=== PATIENT | female | born 1970 | race African-American/Black ===

== ENCOUNTER → 2016-10-31 | Outpatient (CLI) | payer MEDICAID | LOC: FIMAGING 13:10 | PROVIDERS: ATTEND Family Medicine | DX: N63 Unspecified lump in breast (principal) | CPT/HCPCS: G0204 ==

== ENCOUNTER → 2017-02-16 | Outpatient (CLI) | payer MEDICAID | LOC: CIMAGING 13:50 | PROVIDERS: ATTEND Nurse Practitioner Women's Health | DX: M25.532 Pain in left wrist (principal); M25.531 Pain in right wrist | CPT/HCPCS: 73100-PO ==

== ENCOUNTER 2017-04-10 10:10 | Emergency (ER) | payer MEDICAID ==
[2017-04-10 10:24] VITALS: RESP 18; TEMP 98.1
--- NOTE | 2017-04-10 10:28 | EDPHY ---
H & P Stated Complaint: RIGHT EAR FOR 2 DAYS, DENIES FEVERS Time Seen by Provider: 04/10/17 10:16 HPI/ROS: CHIEF COMPLAINT: Ear pain HISTORY OF PRESENT ILLNESS: This is a 46-year-old female with a two-day history of right ear pain. She describes the pain is excruciating. She has had "swimmer's ear" in the past the, which felt similarly. She has not had fever. She denies cough, sore throat, difficulty breathing or swallowing. REVIEW OF SYSTEMS: A ten point review of systems was performed and is negative with the exception of the items mentioned in the HPI. Past medical history: 1. Hypertension 2. 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 No tobacco use. General Appearance: Alert. Vital signs reviewed. BP 153/108. Eyes: Pupils equal and round, no conjunctival injection, no discharge. Anicteric. ENT, Mouth: Mucous membranes are moist, no oropharyngeal erythema or edema. Both tympanic membranes obscured by cerumen. Pain with any attempt to remove cerumen from the right ear. After ears were cleared of cerumen: Normal left external auditory canal and tympanic membrane. Tympanic membrane on the right appears normal. However, there is diffuse erythema and mild swelling of the external auditory canal on the right, consistent with otitis externa. Neck: No lymphadenopathy, supple. Respiratory: Lungs are clear to auscultation; no wheezes, rales, or rhonchi. Cardiovascular: Regular rate and rhythm; no murmur, rub, or gallop. Gastrointestinal: Abdomen is soft and nontender. Skin: Warm and dry, no rashes on exposed skin, normal color. Neurological: Alert and oriented. Moving all four extremities easily and equally. Psychiatric: Normal affect. - Personal History LMP (Females 10-55): 1-7 Days Ago - Medical/Surgical History Hx Asthma: No Hx Chronic Respiratory Disease: No Hx Diabetes: No Hx Cardiac Disease: Yes Hx Renal Disease: No Hx Cirrhosis: No Hx Alcoholism: No Hx HIV/AIDS: No Hx Splenectomy or Spleen Trauma: No Other PMH: ADD, OCD, HTN, C/S, WRIST SURG - Social History Smoking Status: Never smoked Constitutional: Initial Vital Signs Temperature (C) 36.7 C 04/10/17 10:22 Heart Rate 79 10/03/17 10:22 Respiratory Rate 18 04/10/17 10:22 Blood Pressure 153/108 H 04/10/17 10:22 O2 Sat (%) 98 04/10/17 10:22 O2 Delivery Mode Room Air Allergies/Adverse Reactions: Tetracyclines Allergy (Severe, Verified 04/10/17 10:24) Hives Home Medications: Medication Instructions Recorded Proair Hfa Icu (RX) 12/16/14 Qvar 40 (RX) 12/16/14 Modafinil 02/29/16 Adderall 10 MG (*) 04/10/17 Bystolic 04/10/17 Neomy Sulf/Polymyx B Sulf/Hc 4 drops OT TID #1 otic.btl 04/10/17 [Cortisporin Otic Suspension] Propranolol HCl 04/10/17 hydrALAZINE 04/10/17 Medical Decision Making ED Course/Re-evaluation: Cerumen impaction cleared. She has a right otitis externa. I do not suspect a malignant otitis. There is no tympanic membrane perforation. No evidence of otitis media. No change in hearing and there has been no ear trauma. She does not have fever does not otherwise ill. She feels much better after cerumen was cleared from her ears. She is being given a prescription for Cortisporin otic. She is also given information about pain and fever control. She is hypertensive in the emergency department. She has history of hypertension. She is aware of her elevated blood pressure reading today. She will have it followed up with her primary care provider. - Data Points Medications Given: Discontinued Medications Hydrocodone Bitart/Acetaminophen (Odebolt 5/325) 1 tab PO EDNOW ONE Stop: 04/10/17 10:45 Last Admin: 04/10/17 10:47 Dose: 1 tab Carbamide Peroxide (Debrox) 5 drop EACHEAR EDNOW ONE Stop: 04/10/17 10:45 Last Admin: 04/10/17 10:46 Dose: 5 drops Departure - Departure Disposition: Home, Routine, Self-Care Clinical Impression: Right otitis externa Qualifiers: Otitis externa type: diffuse Chronicity: acute Qualified Code(s): H60.311 - Diffuse otitis externa, right ear Condition: Good Instructions: Otitis Externa (ED) Additional Instructions: Adult Pain & Fever Control: We recommend Acetaminophen (Tylenol) and Ibuprofen (Motrin,Advil) for pain and fever control. When fever is high or pain severe, both drugs can be used at the same time, but at different intervals. Please note the time differences. Your dose is: Acetaminophen 650mg every 4 to 6 hours Ibuprofen 400mg every 6 hours with food OR Naproxen Sodium (Aleve) mg every 12 hours. Note: do not take Acetaminophen with Hydrocodone (Vicodin, Lortab) or Oycodone (Percocet). These medications also contain Acetaminophen. No more than 3000mg of Acetaminophen should be taken in 24 hours (for an adult). Referrals: Delmis Fuentes NP [Primary Care Provider] - As per Instructions Prescriptions: Neomy Sulf/Polymyx B Sulf/Hc [Cortisporin Otic Suspension] 4 drops OT TID #1 otic.btl
[2017-04-10] MEDS ORDERED: HYDROCODONE/APAP 5/325 TAB PO ONE (10:44)
[2017-04-10] MEDS ORDERED: CARBAMIDE PEROXIDE 15 ML BOTTLE EACHEAR ONE (10:44)
[2017-04-10 12:04] VITALS: BP 124/62; PULSE 74; O2SAT 94
== END 2017-04-10 11:58 | disposition home or self-care (01) ==
LOC: CED 10:10
DX: H60.311 Diffuse otitis externa, right ear (principal); I10 Essential (primary) hypertension

== ENCOUNTER → 2017-04-19 | Outpatient (CLI) | payer MEDICAID | LOC: CIMAGING 14:14 | PROVIDERS: ATTEND Internal Medicine | DX: M79.641 Pain in right hand (principal); M79.642 Pain in left hand; M79.671 Pain in right foot; M79.672 Pain in left foot | CPT/HCPCS: 73130-PO; 73630-PO ==

== ENCOUNTER 2017-08-06 08:10 | Emergency (ER) | payer MEDICAID ==
[2017-08-06 08:28] VITALS: PULSE 74; RESP 18; TEMP 98
--- NOTE | 2017-08-06 08:38 | EDPHY ---
H & P Time Seen by Provider: 08/06/17 08:25 HPI/ROS: CHIEF COMPLAINT: Right-sided neck pain HISTORY OF PRESENT ILLNESS: 46-year-old female presents with 1 week history of right-sided neck pain. She awoke 1 week ago with right-sided neck pain. The pain is moderate and increases with moving her head. Associated with pain down her right arm and intermittent tingling sensation. Taking Naprosyn without relief. Unable to sleep well because of the pain. No known injury. REVIEW OF SYSTEMS: Constitutional: No fever, no chills Eyes: No visual changes ENT: No sore throat Respiratory: No cough, no shortness of breath Cardiac: No chest pain Gastrointestinal: no vomiting, no abdominal pain Genitourinary: no dysuria Musculoskeletal: No leg pain or swelling Skin: No rash Neurological: No headache, no weakness Psychiatric: No depression Past Medical/Surgical History: Denies Social History: Transport to ED by city bus unemployed Smoking Status: Never smoked Physical Exam: General Appearance: Alert, pleasant Eyes: Pupils equal and round, no conjunctival pallor ENT, Mouth: Mucous membranes moist Neck: Normal inspection, no midline tenderness, right paraspinous tenderness that extends into the right shoulder and periscapular area Respiratory: Lungs are clear to auscultation Cardiovascular: Regular rate and rhythm Neurological: A&O, motor 5/5, sensory intact to light touch, normal gait Vascular: Radial pulse 2 + Skin: Warm and dry Extremities: Normal inspection Psychiatric: Mood and affect normal Constitutional: Initial Vital Signs Temperature (C) 36.6 C 08/06/17 08:25 Heart Rate 74 08/06/17 08:25 Respiratory Rate 18 08/06/17 08:25 Blood Pressure 170/105 H 08/06/17 08:25 O2 Sat (%) 95 08/06/17 08:25 O2 Delivery Mode Room Air Allergies/Adverse Reactions: Tetracyclines Allergy (Severe, Verified 04/10/17 10:24) Hives Home Medications: Medication Instructions Recorded Proair Hfa Icu (RX) 12/16/14 Qvar 40 (RX) 12/16/14 Modafinil 02/29/16 Adderall 10 MG (*) 04/10/17 Bystolic 04/10/17 Propranolol HCl 04/10/17 hydrALAZINE 04/10/17 Diazepam [Valium 5 MG (*)] 5 mg PO Q6 PRN #15 tab 08/06/17 Lidocaine 5% [Lidoderm 5% Patch 1 ea TD DAILY #10 patch 08/06/17 (*)] methylPREDNISolone [Medrol Dose 1 each PO AD #1 ea 08/06/17 Robbie] Medical Decision Making ED Course/Re-evaluation: Clinical presentation consistent with cervical radiculopathy. No evidence of worrisome neurovascular compromise. Valim 5mg orally given and a lidocaine patch placed. Will treat her with a Medrol Dosepak, lidocaine patch and Valium. She will follow up with primary care physician if the symptoms do not improve. - Data Points Medications Given: Discontinued Medications Diazepam (Valium) 5 mg PO EDNOW ONE Stop: 08/06/17 08:41 Last Admin: 08/06/17 08:54 Dose: 5 mg Lidocaine (Lidoderm 5%) 1 ea TD EDNOW ONE Stop: 08/06/17 08:41 Last Admin: 08/06/17 08:54 Dose: 1 ea Departure - Departure Disposition: Home, Routine, Self-Care Clinical Impression: Cervical radiculopathy Condition: Good Instructions: Cervical Radiculopathy (ED) Additional Instructions: 1. Take Tylenol 500 mg every 4 hr as needed for pain. 2. Do not take naproxen while you are taking the Medrol Dosepak. 3. Call to make an appointment with your physician. 4. Use the sling for comfort. Prescriptions: Diazepam [Valium 5 MG (*)] 5 mg PO Q6 PRN #15 tab PRN Reason: neck pain and muscle spasm Lidocaine 5% [Lidoderm 5% Patch (*)] 1 ea TD DAILY #10 patch methylPREDNISolone [Medrol Dose Robbie] 1 each PO AD #1 ea
[2017-08-06] MEDS ORDERED: LIDOCAINE 5% 1 EA PATCH TD ONE (08:40)
[2017-08-06] MEDS ORDERED: DIAZEPAM 5 MG TAB PO ONE (08:40)
[2017-08-06 09:12] VITALS: BP 174/62; O2SAT 97
[2017-08-06] MEDS ORDERED: PATCH REMOVAL 1 EA PATCH TD SCH (21:00)
== END 2017-08-06 09:01 | disposition home or self-care (01) ==
LOC: CED 08:10
DX: M54.12 Radiculopathy, cervical region (principal)
CPT/HCPCS: A4565

== ENCOUNTER → 2017-08-13 | Outpatient (CLI) | payer MEDICAID | LOC: CIMAGING 13:17 | PROVIDERS: ATTEND Family Medicine | DX: M25.511 Pain in right shoulder (principal); M54.2 Cervicalgia; R29.898 Other symptoms and signs involving the musculoskeletal system | CPT/HCPCS: 72040-PO; 73030-PO ==

== ENCOUNTER → 2017-08-17 | Outpatient (CLI) | payer MEDICAID | LOC: CIMAGING 13:14 | PROVIDERS: ATTEND Family Medicine | DX: R92.8 Other abnormal and inconclusive findings on diagnostic imaging of breast (principal) | CPT/HCPCS: 76641-PO ==

== ENCOUNTER → 2018-01-08 | Outpatient (CLI) | payer MEDICAID | LOC: FIMAGING 12:02 | PROVIDERS: ATTEND Family Medicine | DX: Z12.31 Encounter for screening mammogram for malignant neoplasm of breast (principal) ==

== ENCOUNTER → 2018-01-11 | Outpatient (CLI) | payer MEDICAID | LOC: CIMAGING 08:40 | PROVIDERS: ATTEND Family Medicine | DX: R05 Cough (principal); R07.89 Other chest pain; J45.909 Unspecified asthma, uncomplicated | CPT/HCPCS: 71046-PO ==

== ENCOUNTER → 2018-03-15 | Outpatient (CLI) | payer MEDICAID | LOC: CIMAGING 11:32 | PROVIDERS: ATTEND Family Medicine | DX: M25.531 Pain in right wrist (principal); R20.2 Paresthesia of skin; R29.898 Other symptoms and signs involving the musculoskeletal system | CPT/HCPCS: 73110-PO ==

== ENCOUNTER 2018-10-23 12:03 | Emergency (ER) | payer MEDICAID ==
[2018-10-23] MEDS ORDERED: NS 1,000 ML IV ONE (12:16)
[2018-10-23] MEDS ORDERED: DEXAMETHASONE 10 MG/ML VIAL IVP ONE (12:16)
[2018-10-23] MEDS ORDERED: METOCLOPRAMIDE 10 MG/2 ML VIAL IVP ONE (12:16)
[2018-10-23] MEDS ORDERED: KETOROLAC 30 MG/1 ML SDV IVP ONE (12:16)
--- NOTE | 2018-10-23 12:21 | EDPHY ---
H & P Stated Complaint: MIGRAINE SYMPTOMS Time Seen by Provider: 10/23/18 12:12 HPI/ROS: CHIEF COMPLAINT: Migraine headache HISTORY OF PRESENT ILLNESS: Patient is a 47-year-old female with a history of migraines who used to be on medication when she lived in [place] but over the last several years felt like her migraines had subsided. However they have increased again over the last 2-3 months. She is having headaches once or twice per week that involve photophobia, blurry vision, lightheaded and nauseous symptoms. She denies chest pain or shortness of breath. Her symptoms use resolve after about a day or 2. She had been taking [id number] medications successfully but states that that is no longer working. She has not had a fever. She does not have any focal weakness or deficits. Severity: Severe Modifying factors: None REVIEW OF SYSTEMS: Constitutional: denies: chills, fever, recent illness, recent injury EENTM: denies: blurred vision, double vision, nose congestion Respiratory: denies: cough, shortness of breath Cardiac: denies: chest pain, irregular heart rate, lightheadedness, palpitations Gastrointestinal/Abdominal: denies: abdominal pain, diarrhea, nausea, vomiting, blood streaked stools Genitourinary: denies: dysuria, frequency, hematuria, pain Musculoskeletal: denies: joint pain, muscle pain Skin: denies: lesions, rash, jaundice, bruising Neurological: See HPI denies: numbness, paresthesia, tingling, vertigo, weakness Hematologic/Lymphatic: denies: blood clots, easy bleeding, easy bruising Immunologic/allergic: denies: HIV/AIDS, transplant 10 systems reviewed and negative except as noted EXAM: GENERAL: Well-appearing, well-nourished and in no acute distress. HEAD: Atraumatic, normocephalic. EYES: Pupils equal round and reactive to light, extraocular movements intact, sclera anicteric, conjunctiva are normal. ENT: TMs normal, nares patent, oropharynx clear without exudates. Moist mucous membranes. NECK: Normal range of motion, supple without lymphadenopathy or JVD. LUNGS: Breath sounds clear to auscultation bilaterally and equal. No wheezes rales or rhonchi. HEART: Regular rate and rhythm without murmurs, rubs or gallops. ABDOMEN: Soft, nontender, normoactive bowel sounds. No guarding, no rebound. No masses appreciated. BACK: No CVA tenderness, no spinal tenderness, step-offs or deformities EXTREMITIES: Normal range of motion, no pitting or edema. No clubbing or cyanosis. NEUROLOGICAL: Cranial nerves II through XII grossly intact. Normal speech, normal gait. 5/5 strength, normal movement in all extremities, normal sensation , normal reflexes PSYCH: Normal mood, normal affect. SKIN: Warm, dry, normal turgor, no visible rashes or lesions. Source: Patient Exam Limitations: No limitations - Personal History LMP (Females 10-55): 1-7 Days Ago Current Tetanus Diphtheria and Acellular Pertussis (TDAP): Yes Tetanus Vaccine Date: within 10 years - Medical/Surgical History Hx Asthma: No Hx Chronic Respiratory Disease: No Hx Diabetes: No Hx Cardiac Disease: No Hx Renal Disease: No Hx Cirrhosis: No Hx Alcoholism: No Hx HIV/AIDS: No Hx Splenectomy or Spleen Trauma: No Other PMH: ADD, OCD, HTN, C/S, WRIST SURG, Migraine - Family History Significant Family History: No pertinent family hx - Social History Smoking Status: Former smoker Alcohol Use: Sober Drug Use: None Constitutional: Initial Vital Signs Temperature (C) 37.0 C 10/23/18 12:09 Heart Rate 94 10/23/18 12:09 Respiratory Rate 18 10/23/18 12:09 Blood Pressure 160/98 H 10/23/18 12:09 O2 Sat (%) 96 10/23/18 12:09 O2 Delivery Mode Room Air Allergies/Adverse Reactions: Tetracyclines Allergy (Verified 10/23/18 12:11) Pt reports nausea, vomiting Home Medications: Medication Instructions Recorded Modafinil 02/29/16 Bystolic 04/10/17 hydrALAZINE 04/10/17 Bp Medication 10/23/18 Metoclopramide [Reglan 10 mg tab 10 mg PO BID PRN #10 tab 10/23/18 (RX)] Medical Decision Making ED Course/Re-evaluation: 1:10 p.m. the patient is feeling completely better. She is asking to go home. I will give her prescription for Reglan and have her follow up with Neurology. Discussed indications for returning. Differential Diagnosis: Partial list of the Differential diagnosis considered include but were not limited to; migraine, tension headache and although unlikely based on the history and physical exam, I also considered tumor, trauma, infection, hemorrhage, CVA. I discussed these differential diagnoses and the plan with the patient as well as the usual and expected course. The patient understands that the diagnosis is provisional and that in medicine we are not always correct and that further workup is often warranted. Usual and customary warnings were given. All of the patient's questions were answered. The patient was instructed to return to the emergency department should the symptoms at all worsen or return, otherwise to followup with the physician as we discussed. - Data Points Medications Given: Discontinued Medications Dexamethasone (Decadron Injection) 10 mg IVP EDNOW ONE Stop: 10/23/18 12:17 Last Admin: 10/23/18 12:30 Dose: 10 mg Sodium Chloride (Ns) 1,000 mls @ 0 mls/hr IV ONCE ONE; Wide Open PRN Reason: Protocol Stop: 10/23/18 12:17 Last Admin: 10/23/18 12:29 Dose: 1,000 mls Ketorolac Tromethamine (Toradol) 30 mg IVP EDNOW ONE Stop: 10/23/18 12:17 Last Admin: 10/23/18 12:30 Dose: 30 mg Metoclopramide HCl (Reglan Injection) 10 mg IVP EDNOW ONE Stop: 10/23/18 12:17 Last Admin: 10/23/18 12:30 Dose: 10 mg Departure - Departure Disposition: Home, Routine, Self-Care Clinical Impression: Migraine Qualifiers: Migraine type: unspecified Status migrainosus presence: without status migrainosus Intractability: not intractable Qualified Code(s): G43.909 - Migraine, unspecified, not intractable, without status migrainosus Condition: Fair Instructions: Migraine Headache (ED) Referrals: Ej Pablo DO [Medical Doctor] - 5-7 days, call for appt. Prescriptions: Metoclopramide [Reglan 10 mg tab (RX)] 10 mg PO BID PRN #10 tab PRN Reason: Headache
[2018-10-23 13:12] VITALS: BP 128/85
== END 2018-10-23 13:18 | disposition home or self-care (01) ==
LOC: CED 12:03
DX: G43.909 Migraine, unspecified, not intractable, without status migrainosus (principal); E86.9 Volume depletion, unspecified
CPT/HCPCS: 96361-ER; 96374-ER; 96375-ER; 99284-ER; J1100; J1885; J2765

== ENCOUNTER 2018-12-26 07:54 | Day surgery (SDC) | payer MEDICAID | END 2018-12-26 16:19 | disposition home or self-care (01) | LOC: FCATH 07:54 ==